=== PATIENT | female | born 2000 | race Caucasian/White ===

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

== ENCOUNTER → 2018-01-05 14:26 | Outpatient (CLI) | payer MEDICAID, SELFPAY | PROVIDERS: Visit Provider Obstetrics & Gynecology | DX: Z34.82 Encounter for supervision of other normal pregnancy, second trimester (principal); N39.0 Urinary tract infection, site not specified | CPT/HCPCS: 87086 ==

== ENCOUNTER → 2018-02-02 16:44 | Outpatient (CLI) | payer MEDICAID, SELFPAY ==
[2018-02-02 17:47] LABS: Glucose Challenge Gest 1H 50g 71 mg/dL (70-140)
[2018-02-02 18:39] LABS: Hematocrit 30.8 % (37-47); Hemoglobin 10.4 g/dl (12.0-15.0); Mean Corp Hgb Conc 33.8 g/gl (32-36); Mean Corpuscular Hgb 31.9 pg (27.0-32.0); Mean Corpuscular Volume 94.5 fL (81-99); Platelet Count 309 K/mm3 (150-450); RBC Distribution Width CV 13.9 % (11.6-14.6); RBC Distribution Width SD 46.2 fl (35.1-43.9); Red Blood Count 3.26 M/mm3 (4.2-5.4); White Blood Count 9.3 K/mm3 (4.4-11.0)
[2018-02-02 19:03] LABS: Scan Indicated on CBC? Y/N NO
== END ==
PROVIDERS: Visit Provider Obstetrics & Gynecology
DX: Z34.82 Encounter for supervision of other normal pregnancy, second trimester (principal)
CPT/HCPCS: 36415; 82950; 85027; 86850

== ENCOUNTER → 2018-04-05 19:24 | Outpatient (CLI) | payer MEDICAID, SELFPAY ==
[2018-04-05 20:35] LABS: Group B Strep DNA By PCR Negative (Negative); Internal Control PASS; Probe Check PASS; Specimen Processing Control PASS
== END ==
PROVIDERS: Visit Provider Obstetrics & Gynecology
DX: Z36.85 Encounter for antenatal screening for Streptococcus B (principal)
CPT/HCPCS: 87081; 87653

== ENCOUNTER 2018-04-28 02:40 | Outpatient (CLI) | payer MEDICAID, SELFPAY ==
[2018-04-28 03:07] VITALS: BMI 29.5
[2018-04-28 03:44] LABS: Mucous, Urine 0 SEEN /hpf (<or=2+)
[2018-04-28 03:45] LABS: Color, Urine Yellow (Yellow); Glucose, Dipstick Normal (Normal); Ketone-Dipstick Negative (Negative); Leukocyte Esterase-Dipstick 500 /ul (Negative); Nitrite-Dipstick Negative (Negative); Occult Blood-Urine 50 /ul (Negative); Protein-Dipstick 30 mg/dl (Negative); Urine Bilirubin Dipstick Negative (Negative); Urine Clarity Cloudy (Clear); Urine Urobilinogen Normal (Normal)
[2018-04-28 03:58] LABS: Bacteria 1+ /hpf (None Seen); Squamous Epithelial Cells - UA 5-10 SEEN /hpf (5-10)
[2018-04-28 03:59] LABS: Red Blood Cells-Urine 0-5 SEEN /hpf (0-5); White Blood Cells 50-100 SEEN /hpf (0-5)
[2018-04-28] MEDS: Acetaminophen 500 MG Tablet 1000 MG PO (04:38)
--- NOTE | 2018-04-29 08:52 | OB.TRI.NOTE ---
History of Present Illness Date of Service: 04/28/18 Was patient seen by the physician?: No Reason For Visit: R/O LABOR Date of Service: 04/28/18 Final KRISTI: 05/01/18 Final KRISTI Source: US <20 weeks Gestational age: 39 Weeks and 4 Days History of Present Illness: 18 yo for evaluation of possible labor. CC of cramping, pain Allergies No Known Allergies Allergy (Verified 03/19/17 06:40) NST - FHR Rate Baby A Baseline: 110-120 with avg variability. Accels to 140s Accelerations:: 15 x 15 Decelerations:: None NST Reactive:: Yes, Appropriate for gestational age FHR Category:: Category I Uterine Activity:: irreg UCs. Impression/Plan 39+ wk False labor. Home NST reactive RTO as planned for scheduled appt Return to hospital if inc s/sx of labor.
== END 2018-04-28 04:45 | disposition home or self-care (01) ==
LOC: WPOUT 03:05 → WP 03:05
PROVIDERS: Visit Provider Obstetrics & Gynecology
DX: O47.1 False labor at or after 37 completed weeks of gestation (principal); Z3A.39 39 weeks gestation of pregnancy
CPT/HCPCS: 59025; 59050; 81001; 87086; 99218; G0378

== ENCOUNTER 2018-05-06 19:49 | Inpatient (IN) | payer MEDICAID, SELFPAY ==
[2018-05-06 20:43] VITALS: BMI 29.7
[2018-05-06] MEDS: Lactated Ringers 1,000 ML 50 ML IV ×3 (21:15→23:30)
[2018-05-06 21:30] LABS: Hematocrit 30.9 % (37-47); Mean Corp Hgb Conc 32.4 g/gl (32-36); Mean Corpuscular Hgb 30.2 pg (27.0-32.0); Mean Corpuscular Volume 93.4 fL (81-99); Mean Platelet Vol. 9.9 fl (6.2-12.0); Platelet Count 253 K/mm3 (150-450); RBC Distribution Width CV 14.5 % (11.6-14.6); RBC Distribution Width SD 49.2 fl (35.1-43.9); Red Blood Count 3.31 M/mm3 (4.2-5.4); White Blood Count 11.5 K/mm3 (4.4-11.0)
[2018-05-06 21:31] LABS: Scan Indicated on CBC? Y/N NO
[2018-05-06] MEDS: miSOPROStol 25 MCG TABLET PO (21:45)
--- NOTE | 2018-05-06 22:26 | PCM.PN.BLA ---
Progress Note Induction for postdates, cytotec 116/68 EFM: 130-140s with avg variability. Accels to 150-160s prolonged accels at times. UCs irregular Category I tracing. A/P: 40 5/7 wk induction of labor postdates. Cx /firm/hi/posterior. Cytotec. Plans epidural . Continue labor.
[2018-05-06] MEDS: fentaNYL-bupivacaine (epidural) 100 ML BAG EPIDURAL (23:30)
--- NOTE | 2018-05-07 01:13 | PCM.PN.BLA ---
Progress Note 40 6/7 wk induction. Cytotec single dose. Epidural placed AVSS CX /-1 per RN check EFM 120-130s avg variability with accelerations Irregular , poor pickup of UCs. IBOW A/P: 40 6/7 wk induction No further cytotec, given change. Continue induction. Pitocin per protocol prn .
[2018-05-07] MEDS: Oxytocin 30 units/NS 500 ml 30 UNITS/500 ML IV.SOLN IV (04:35)
--- NOTE | 2018-05-07 07:45 | PCM.PN.BLA ---
Progress Note LABOR PROGRESS NOTE Slept some. Comfortable w/ epidural AVSS Pitocin at 7 mIU/min CX 5-6/75/sl posterior, mod consistency EFM 130-140 with prolonged accels to 150-160s UCs q 1-3 mins. AROM clear fluid, IUPC placed A/P: 40 6/7 wk induction postdates. GBS neg. continue pitocin anticipate .
[2018-05-07] MEDS: Lactated Ringers 1,000 ML 50 ML IV (07:59)
[2018-05-07] MEDS: fentaNYL-bupivacaine (epidural) 100 ML BAG EPIDURAL (08:41)
[2018-05-07] MEDS: Oxytocin 30 units/NS 500 ml 30 UNITS/500 ML IV.SOLN 334 UNITS IV (10:05)
--- NOTE | 2018-05-07 10:08 | PCM.OB.VAG ---
Vaginal Delivery Maternal Presentation: Medically Indicated Induction 40 5/7 wk induction Method of Induction: Pitocin, Amniotomy, Cytotec Medical Reason for Induction: Post term Amniotic Membrane Rupture Type: Artificial Amniotic Fluid Description: Clear Final KRISTI: 05/01/18 Gestational age: 40 Weeks and 6 Days Date of Procedure: 05/07/18 Pre-Operative Diagnosis: 40 6/7 Post-Operative Diagnosis: Same Surgery/ Procedure Performed: Spontaneous Vaginal Delivery Type of Anesthesia: Epidural Description of Procedure: of a brenner viable male over intact perineum Head delivered JYOTHI. No nuchal cord. OP and nares bulb suctioned on perineum. Mild dystocia relieved with rotation of anterior shoulder. Shoulders then delivered easily. to maternal abdomen. Delayed cord clamp employed then cord clamped x two and cut. Infant to skin to skin. Ap 8/9 PP exam no lacerations. EBL 350 cc Placenta delivered by spont expulsion, expression 3V cord, normal appearing , intact with trailing membranes mild intermittent uterine atony noted. Pitocin running, Massage. Consider Methergine PRN. Presentation: Vertex, JYOTHI Placental Delivery Description: Spontaneous, Expressed Placenta Disposition: [facility] Cord Vessel Description: 3 Vessels Cord Entanglement: None Estimated Blood Loss: 350 Infant A gender: Male (1 minute): 8 (5 minute): 9 Episiotomy Description: None Laceration: None Medications given after delivery: IV Pitocin Complications: None
--- NOTE | 2018-05-07 10:15 | PCM.DCVAG ---
Discharge Diet: No Restrictions Discharge Activity: May Shower, May Take a Tub Bath Return to work on:: 06/21/18 May resume sexual activity in: 4-6 weeks Additional Activity Instructions:: Nothing in the vagina for 4-6 weeks. You may return to work/school in 6 weeks. Additional Instructions: If you experience any of the following, contact your healthcare provider. Bleeding that soaks a pad every hour for 2 hours Fever 100.4 or higher Unrelieved abdominal pain Problems urinating (including inability to urinate or burning while urinating). Visual changes Severe headache Flu-like symptoms Pain or redness in one of both of your breasts Pain, warmth, tenderness or swelling in your legs, especially the calf area Frequent nausea and vomiting Symptoms of depression or anxiety If you experience any of the following, call 911 or go to the nearest Emergency Room. Chest pain Problems breathing Seizure activity Partial or complete paralysis of a body part, slurred speech, weakness or drooping of the face, or a sudden inability to walk or hold your balance Allergies/Adverse Reactions: Allergies No Known Allergies Allergy (Verified 05/06/18 20:44) Medications to take at Discharge #103/Iron Fumarate/FA 1 mg PO DAILY 02/09/17 Please Follow Up With: Yvette Lion MD - [phone] When: Call to make an appointment with your doctor in 6 weeks. Test Results: Test results from this visit will be discussed in further detail at your follow-up appointment, if applicable. Proposed Discharge Date: 05/09/18
--- NOTE | 2018-05-07 10:16 | DCINST_ITS ---
Discharge Diet: No Restrictions Discharge Activity: May Shower, May Take a Tub Bath Return to work on:: 06/21/18 May resume sexual activity in: 4-6 weeks Additional Activity Instructions:: Nothing in the vagina for 4-6 weeks. You may return to work/school in 6 weeks. Additional Instructions: If you experience any of the following, contact your healthcare provider. * Bleeding that soaks a pad every hour for 2 hours * Fever 100.4 or higher * Unrelieved abdominal pain * Problems urinating (including inability to urinate or burning while urinating). * Visual changes * Severe headache * Flu-like symptoms * Pain or redness in one of both of your breasts * Pain, warmth, tenderness or swelling in your legs, especially the calf area * Frequent nausea and vomiting * Symptoms of depression or anxiety If you experience any of the following, call 911 or go to the nearest Emergency Room. * Chest pain * Problems breathing * Seizure activity * Partial or complete paralysis of a body part, slurred speech, weakness or drooping of the face, or a sudden inability to walk or hold your balance Allergies/Adverse Reactions: Allergies No Known Allergies Allergy (Verified 05/06/18 20:44) Medications to take at Discharge #103/Iron Fumarate/FA 1 mg PO DAILY 02/09/17 Please Follow Up With: Yvette Lion MD - [phone] When: Call to make an appointment with your doctor in 6 weeks. Test Results: Test results from this visit will be discussed in further detail at your follow- up appointment, if applicable. Proposed Discharge Date: 05/09/18
[2018-05-07] MEDS: Oxytocin 30 units/NS 500 ml 30 UNITS/500 ML IV.SOLN 167 UNITS IV (10:35)
[2018-05-07] MEDS: Ibuprofen 600 MG Tablet PO ×2 (11:32→22:22)
[2018-05-07 15:53] VITALS: BP 113/55; PULSE 72; RESP 16; TEMP 36.7
[2018-05-07 19:00] VITALS: BP 123/73; PULSE 120; RESP 20; TEMP 38.9; O2SAT 100
[2018-05-07] MEDS: 0.9% Saline Lock 10 ML Syringe IV (19:05)
[2018-05-07] MEDS: Prenatal Vits Tablet 1 TABLET PO (19:07)
[2018-05-07 19:48] VITALS: BP 131/74; PULSE 109; RESP 17; TEMP 39.1; O2SAT 100
[2018-05-07] MEDS: Acetaminophen 500 MG Tablet 1000 MG PO (20:02)
--- NOTE | 2018-05-07 20:15 | RAD_ITS ---
STUDY: X-RAY CHEST REASON FOR EXAM: Female, 18 years old. Fever after labor. TECHNIQUE: Frontal and lateral views of the chest. COMPARISON: None. FINDINGS: The lungs are clear and expanded. There is no demonstrated pleural abnormality. Normal size heart. Normal mediastinum and aby. Normal visualized pulmonary arteries. Normal visualized aortic arch and descending thoracic aorta. Normal visualized thoracic spine. Normal visualized ribs, clavicles, and shoulders. There is no demonstrated abnormality of the visualized soft tissue structures of the upper abdomen. RAD/Chest PA and Lateral IMPRESSION: No acute cardiopulmonary process. Electronically Signed: Sheron Stockton MD at 21:14 EDT Tel , Service support ,
--- NOTE | 2018-05-07 20:25 | PCM.PN.BLA ---
Progress Note Day of Delivery Called with pt temp 102 deg Pt in wheelchair coming back from CXR ordered. States feels hot now. No cough, URI. No leg pain. No UTI sx. no breast milk production. Tm 102 GEN: A and O, NAD Abdomen soft NT. Fundus firm NT inferior to umbilicus Lungs CTA bilaterally. A/P Fever day of delivery. Diff dx reviewed. Exam nonfocal. Tylenol given. continue observation of vitals and temps. Labs pending: CBC, Blood cultures, Urine culture. CXR done. Continue care.
[2018-05-07 21:07] LABS: Hematocrit 25.4 % (37-47); Hemoglobin 8.2 g/dl (12.0-15.0); Mean Corp Hgb Conc 32.3 g/gl (32-36); Mean Corpuscular Hgb 30.1 pg (27.0-32.0); Mean Corpuscular Volume 93.4 fL (81-99); Platelet Count 169 K/mm3 (150-450); RBC Distribution Width CV 14.5 % (11.6-14.6); RBC Distribution Width SD 48.7 fl (35.1-43.9); Red Blood Count 2.72 M/mm3 (4.2-5.4); White Blood Count 12.3 K/mm3 (4.4-11.0)
[2018-05-07 21:09] LABS: Scan Indicated on CBC? Y/N NO
[2018-05-07 22:15] VITALS: TEMP 38.9
--- NOTE | 2018-05-07 22:24 | NURSING ---
Pt. resting in bed, still febrile at 102.1 degrees. No c/o of headache or nausea. Experiencing painful cramps and slight pain in tailbone.
[2018-05-08] VITALS: BP 122/55; PULSE 123; RESP 17; TEMP 39.3; O2SAT 97
[2018-05-08] MEDS: Acetaminophen 500 MG Tablet 1000 MG PO ×3 (00:19→21:42)
--- NOTE | 2018-05-08 00:30 | NURSING ---
Pt up to BR for tempid shower, pt tearful, c/o abd cramping, tylenol was given. Pt back to bed, boyfriend at bedside. Encouraged PO fluids. Will monitor.
[2018-05-08 01:26] VITALS: TEMP 37.4
[2018-05-08 03:40] VITALS: BP 115/65; PULSE 103; RESP 16; TEMP 37.1; O2SAT 98
[2018-05-08] MEDS: Ibuprofen 600 MG Tablet PO ×3 (05:00→20:23)
--- NOTE | 2018-05-08 06:40 | PCM.PN.BLA ---
Progress Note RE PP fever day of delivery. Temps last night to 102, now afeb. CXR neg. Blood and urine cultures pending. CBC with slight Inc WBCs. Possible reactive after delivery. Exam nonfocal last pm. Repeat CBC this am.
[2018-05-08 07:10] LABS: Hematocrit 25.3 % (37-47); Hemoglobin 8.2 g/dl (12.0-15.0); Mean Corp Hgb Conc 32.4 g/gl (32-36); Mean Corpuscular Hgb 30.9 pg (27.0-32.0); Mean Corpuscular Volume 95.5 fL (81-99); Mean Platelet Vol. 9.7 fl (6.2-12.0); Platelet Count 179 K/mm3 (150-450); RBC Distribution Width CV 14.2 % (11.6-14.6); RBC Distribution Width SD 46.6 fl (35.1-43.9); Red Blood Count 2.65 M/mm3 (4.2-5.4); White Blood Count 10.3 K/mm3 (4.4-11.0)
[2018-05-08 07:13] LABS: Scan Indicated on CBC? Y/N NO
[2018-05-08 07:56] VITALS: BP 123/74; PULSE 104; RESP 18; TEMP 36.6; O2SAT 98
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
--- NOTE | 2018-05-08 09:27 | PN.OBGYN_ITS ---
Subjective: PPD#1 Doing well. senior director creative services consult done yesterday. no concerns voiced. Bottle feeding. Objective: Up walking around room, preparing for baby pictures. - Physical Exam General: Alert, Oriented x3, Cooperative, No apparent distress Neck: Supple Psych/Mental Status: Normal Affect Vital Signs Temp Pulse Resp BP Pulse Ox 97.9 F 104 H 18 123/74 H 98 05/08/18 07:56 05/08/18 07:56 05/08/18 07:56 05/08/18 07:56 05/08/18 07:56 Oxygen Delivery Method Room Air Weight: 78.642 kg Body Mass Index (BMI) 29.7 Intake and Output for Last 24 Hours 05/06/18 05/07/18 05/08/18 23:59 23:59 23:59 Intake Total 2765 / 2765 Output Total 1450 / 1450 800 / 800 Balance 1315 / 1315 -800 / -800 Laboratory Tests Past 24 Hrs 05/07/18 05/08/18 20:35 06:51 WBC 12.3 H 10.3 RBC 2.72 L 2.65 L Hgb 8.2 L 8.2 L Hct 25.4 L 25.3 L MCV 93.4 95.5 MCH 30.1 30.9 MCHC 32.3 32.4 RDW 14.5 14.2 RDW Differential 48.7 H 46.6 H Plt Count 169 179 MPV 10.0 9.7 Medical Necessity - Tobacco Use Smoking Status: Current every day smoker Assessment/Plan All Active Problems Iron deficiency anemia during (Acute) 41 wk induction. to Stable pp. Continue care.
[2018-05-08 13:35] VITALS: BP 138/82; PULSE 134; RESP 20; TEMP 38.2; O2SAT 98
--- NOTE | 2018-05-08 13:47 | PCM.PN.BLA ---
Progress Note ADDENDUM: Low gr fever c/o chills and low back pain. Urine culture with likely E coli Exam otherwise nonfocal Macrobid to start Continue hospital care for now.
[2018-05-08] MEDS: Nitrofurantoin Macrocrystals 100 MG Capsule PO ×2 (14:10→21:42)
[2018-05-08 20:43] VITALS: BP 114/68; PULSE 92; RESP 16; TEMP 36.7; O2SAT 99
[2018-05-09 02:36] VITALS: BP 118/76; PULSE 87; RESP 16; TEMP 36.9; O2SAT 98
[2018-05-09] MEDS: Ibuprofen 600 MG Tablet PO (05:34)
--- NOTE | 2018-05-09 07:23 | PCM.PN.OB ---
- Physical Exam Vital Signs Temp Pulse Resp BP Pulse Ox 98.5 F 87 16 118/76 98 05/09/18 02:36 05/09/18 02:36 05/09/18 02:36 05/09/18 02:36 05/09/18 02:36 Oxygen Delivery Method Room Air Weight: 78.642 kg Body Mass Index (BMI) 29.7 Intake and Output for Last 24 Hours 05/07/18 05/08/18 05/09/18 23:59 23:59 23:59 Output Total 800 / 800 Balance -800 / -800 Microbiology Past 72 Hours 05/07/18 20:25 Urine Culture - Preliminary Urine, Clean Catch Presumptive E. coli Medical Necessity - Tobacco Use Smoking Status: Current every day smoker Assessment/Plan All Active Problems Iron deficiency anemia during (Acute)
[2018-05-09 08:00] VITALS: BP 118/64; PULSE 82; RESP 16; TEMP 36.1; O2SAT 98
--- NOTE | 2018-05-09 08:02 | PCM.PN.OB ---
Subjective: PPD#2 Induction postdates. Denies any shakiness, chills at present. No abdominal cramping noted. Low back pain better compared to yesterday. Started Macrobid yesterday for E Coli on urine culture. Blood cultures pending. Objective: lying in bed, NAD. Baby in room asleep in crib. - Physical Exam General: Alert, Oriented x3, Cooperative, No apparent distress HEENT: Atraumatic Neck: Supple Abdomen: Soft - Fundus firm NT at 2 cm inferior to umbilicus Neurological: Cranial nerves II-XII grossly intact Psych/Mental Status: Normal Affect Vital Signs Temp Pulse Resp BP Pulse Ox 98.5 F 87 16 118/76 98 05/09/18 02:36 05/09/18 02:36 05/09/18 02:36 05/09/18 02:36 05/09/18 02:36 Oxygen Delivery Method Room Air Weight: 78.642 kg Body Mass Index (BMI) 29.7 Intake and Output for Last 24 Hours 05/07/18 05/08/18 05/09/18 23:59 23:59 23:59 Output Total 800 / 800 Balance -800 / -800 Microbiology Past 72 Hours 05/07/18 20:25 Urine Culture - Preliminary Urine, Clean Catch Presumptive E. coli Medical Necessity - Tobacco Use Smoking Status: Current every day smoker Assessment/Plan All Active Problems Iron deficiency anemia during (Acute) 41 wk induction. to Last T max yesterday at 100.8 deg. CXR neg. Blood cultures pending. Exam nonfocal except for possible UTI (low colony count) E coli UTI by culture. Macrobid 100 mg po bid for 7 d. RX sent. RTO in 6 wk for pp check.
[2018-05-09] MEDS: Nitrofurantoin Macrocrystals 100 MG Capsule PO (10:20)
[2018-05-09] MEDS: Prenatal Vits Tablet 1 TABLET PO (10:20)
[2018-05-09 10:22] VITALS: TEMP 36.4
[2018-05-09 12:22] VITALS: BP 113/70; PULSE 90; RESP 18; TEMP 36.3; O2SAT 97
== END 2018-05-09 12:45 | disposition home or self-care (01) | DRG 373 ==
PROVIDERS: Obstetrics & Gynecology; Admitting Provider Obstetrics & Gynecology; Referring Provider Obstetrics & Gynecology; Visit Provider Obstetrics & Gynecology
DX: O48.0 Post-term pregnancy (principal); O99.02 Anemia complicating childbirth; N39.0 Urinary tract infection, site not specified; Z37.0 Single live birth; Z3A.40 40 weeks gestation of pregnancy; O66.0 Obstructed labor due to shoulder dystocia; O62.2 Other uterine inertia; D50.9 Iron deficiency anemia, unspecified; O99.334 Smoking (tobacco) complicating childbirth; F17.200 Nicotine dependence, unspecified, uncomplicated; B96.20 Unspecified Escherichia coli [E. coli] as the cause of diseases classified elsewhere
CPT/HCPCS: 59025; 59050; 71046; 85027; 86850; 86870; 86900; 86902; 86905; 86920; 86921; 86922; 87040; 87086; 87088; 87186; 99218; J7120; 90686; A4216; G0378